=== PATIENT | female | born 1960 | race Caucasian/White ===

== ENCOUNTER 2016-08-08 10:47 | Emergency (ER) | payer MEDICARE ==
[2016-08-08 12:17] LABS: ALBUMIN 3.8 g/dL (3.4-5.0); ALKALINE PHOSPHATASE 83 U/L (46-116); ALT (SGPT) 45 U/L (10-68); CALC OSMOLALITY 287 mosm/kg (275-300); CARBON DIOXIDE 23.5 mmol/L (21.0-32.0); CHLORIDE - SERUM 108 mmol/L (98-107); GLUCOSE 218 mg/dL (74-106); POTASSIUM - SERUM 4.1 mmol/L (3.5-5.1); PROTEIN - SERUM 7.5 g/dL (6.4-8.2); SODIUM 142 mmol/L (136-145); UREA NITROGEN 8 mg/dL (7-18)
[2016-08-08 12:18] LABS: HEMATOCRIT 34.6 % (36.0-48.0); HEMOGLOBIN 13.1 g/dL (12-16); LYMPHOCYTES 13.6 % (15-50); MCH 33.6 pg (26.0-34.0); MCHC 37.9 g/dL (31.0-37.0); MCV 88.7 fL (80.0-100.0); MEAN PLATELET VOLUME 9.2 fL (7.4-10.4); NEUTROPHILS 81.6 % (40-80); PLATELET COUNT 261 10x3/uL (130-400); RDW 13.2 % (11.5-14.5); WBC 13.2 10x3/uL (4.8-10.8)
[2016-08-08 12:22] LABS: C-REACTIVE PROTEIN < 0.2 mg/dL (0.0-0.9)
[2016-08-08 12:27] LABS: CREATININE - SERUM 0.8 mg/dL (0.6-1.3); eGFR NON AFRICAN AMERICAN 78 mL/min (90-120)
[2016-08-08 13:12] LABS: ERYTHROCYTE SEDIMENTATION RATE 25 mm/hr (0-30)
== END 2016-08-08 14:30 | disposition home or self-care (01) ==
LOC: D.ER 10:47
PROVIDERS: Physician Assistant
DX: R51 Headache (principal); R42 Dizziness and giddiness; R11.2 Nausea with vomiting, unspecified; M54.2 Cervicalgia; E11.9 Type 2 diabetes mellitus without complications; F17.200 Nicotine dependence, unspecified, uncomplicated